=== PATIENT | male | born 1960 | race Caucasian/White ===

== ENCOUNTER 2018-10-11 11:23 | Emergency (ER) | payer OTHER ==
--- NOTE | 2018-10-11 12:02 | XR ---
EXAMINATION TYPE: XR shoulder complete LT DATE OF EXAM: 10/11/2018 COMPARISON: NONE HISTORY: Pain TECHNIQUE: Three views are submitted. FINDINGS: There is an anterior dislocation of the humeral head with a Hill-Sachs fracture. Soft tissue fragment s may be related to bony fragments from the Hill-Sachs deformity. Arthropathy of the AC joint. IMPRESSION: 1. Anterior dislocation with subtle sac compression fracture superior humeral head. Soft tissue ossif ication or calcification may be secondary to the dislocation.
--- NOTE | 2018-10-11 12:04 | ED ---
Upper Extremity HPI - General Source: patient, RN notes reviewed Mode of arrival: ambulatory Limitations: no limitations <Kodak Roth - Last Filed: 10/11/18 13:19> <Ez Krishnan - Last Filed: 10/11/18 13:35> - General Chief Complaint: Extremity Injury, Upper Stated Complaint: lt shoulder injury Time Seen by Provider: 10/11/18 11:36 - History of Present Illness Initial Comments: 58-year-old male presents emergency department to complaint left shoulder pain. Patient had multiple prior dislocations. Patient states he is at [facility] Department Emergency department felt a pop. Patient states he feels exactly the same. Patient denies paresthesias time. Patient states he is scheduled to have surgery for this. Patient denies any might falls. Patient states that he has had an MRI in the past which shows evidence of rotator cuff injury. (Kodak Roth) - Related Data Home Medications Medication Instructions Recorded Confirmed Acetaminophen [Tylenol Arthritis] 650 mg PO Q4H PRN 10/11/18 10/11/18 Calcium Carb/Magnesium Ox,Carb 1 tab PO TID 10/11/18 10/11/18 [Elías-Mag 500-250 MG Chewable] Ibuprofen [Motrin] 600 mg PO Q6HR PRN 10/11/18 10/11/18 Lisinopril [Prinivil] 5 mg PO DAILY 10/11/18 10/11/18 Multivitamins, Thera [Multivitamin 1 tab PO DAILY 10/11/18 10/11/18 (formulary)] Omeprazole 20 mg PO DAILY 10/11/18 10/11/18 Thiamine [Vitamin B-1] 100 mg PO DAILY 10/11/18 10/11/18 cloNIDine HCL [Catapres] 0.1 mg PO Q4H PRN 10/11/18 10/11/18 traZODone HCL 50 mg PO HS 10/11/18 10/11/18 Allergies Allergy/AdvReac Type Severity Reaction Status Date / Time No Known Allergies Allergy Verified 10/11/18 12:08 Review of Systems ROS Other: All systems not noted in ROS Statement are negative. <Kodak Roth - Last Filed: 10/11/18 13:19> ROS Other: All systems not noted in ROS Statement are negative. <Ez Krishnan - Last Filed: 10/11/18 13:35> ROS Statement: Those systems with pertinent positive or pertinent negative responses have been documented in the HPI. Past Medical History Past Medical History: GERD/Reflux, Hypertension Additional Past Medical History / Comment(s): frequent left shoulder dislocations, Barretts esophagus Additional Past Surgical History / Comment(s): bilateral knee replace, screw in right ankle Past Psychological History: Anxiety, Depression Smoking Status: Never smoker Past Alcohol Use History: Abuse Past Drug Use History: None Reported <Kodak Roth M - Last Filed: 10/11/18 13:19> General Exam Limitations: no limitations General appearance: alert, in no apparent distress Respiratory exam: Present: normal lung sounds bilaterally. Absent: respiratory distress, wheezes, rales, rhonchi, stridor Cardiovascular Exam: Present: regular rate, normal rhythm, normal heart sounds. Absent: systolic murmur, diastolic murmur, rubs, gallop, clicks Extremities exam: Present: other (Left shoulder neurovascular intact, limited range of motion, there is noted sulcus, obvious dislocation) Neurological exam: Present: alert, oriented X3, CN II-XII intact Skin exam: Present: warm, dry, intact, normal color. Absent: rash <Kodak Roth M - Last Filed: 10/11/18 13:19> Course Vital Signs 10/11/18 10/11/18 10/11/18 11:31 12:20 12:30 Temperature 98.3 F Pulse Rate 91 70 89 Respiratory 18 18 20 Rate Blood Pressure 164/107 148/88 152/116 O2 Sat by Pulse 97 97 97 Oximetry 10/11/18 10/11/18 10/11/18 12:35 12:40 12:45 Temperature Pulse Rate 90 87 80 Respiratory 21 21 17 Rate Blood Pressure 120/47 129/55 101/82 O2 Sat by Pulse 99 97 99 Oximetry 10/11/18 10/11/18 10/11/18 12:50 12:55 13:00 Temperature Pulse Rate 73 70 68 Respiratory 20 16 18 Rate Blood Pressure 100/73 120/59 115/59 O2 Sat by Pulse 99 100 100 Oximetry 10/11/18 13:15 Temperature Pulse Rate 71 Respiratory 16 Rate Blood Pressure 130/72 O2 Sat by Pulse 100 Oximetry Procedures - Orthopedic Joint Reduction Joint #1 Consent Obtained: written consent Side: left Joint Reduction Location: shoulder Analgesia: procedural sedation Shoulder Technique Used (if applicable): traction/counter-traction, external rotation Post-Reduction Neuro Exam: intact Post-Reduction Vascular Exam: intact Post Reduction X-Ray Obtained: Yes Post Reduction X-Ray Results: reduced Splint Applied: Yes Patient Tolerated Procedure: well - Procedural Sedation Procedural Sedation Start Time: 12:25 Procedural Sedation Stop Time: 13:10 Indications: fracture/dislocation reduction ASA Class: II Mallampati Airway Score: 2 Preparation: monitoring manager applied, pulse oximeter, capnometry used, supplemental O2 applied, suction/airway equipment at bedside IV Propofol Dose (mgs): 200 IV Etomidate Dose (mgs): 20 Complications: none Patient Tolerated Procedure: well <Ez Krishnan - Last Filed: 10/11/18 13:35> Medical Decision Making <Koadk Roth - Last Filed: 10/11/18 13:19> - Medical Decision Making 58-year-old male present emergency department for left shoulder dislocation. This was reduced by Dr. Krishnan. Patient was placed a sling and will follow- up with his prior orthopedic physician. (Kodak Roth) Disposition Is patient prescribed a controlled substance at d/c from ED?: No Time of Disposition: 13:19 <Kodak Roth - Last Filed: 10/11/18 13:19> <Ez Krishnan - Last Filed: 10/11/18 13:35> Clinical Impression: Dislocation of left shoulder joint Disposition: HOME SELF-CARE Condition: Stable Instructions (If sedation given, give patient instructions): Shoulder Dislocation (ED), Moderate Sedation (ED) Additional Instructions: Please return to the Emergency Department if symptoms worsen or any other concerns. Referrals: None,Stated [Primary Care Provider] - 1-2 days
[2018-10-11] MEDS: PROPOFOL 10 MG/ML 20 ML VIAL IV ONE ×3 (12:27→12:38)
[2018-10-11] MEDS ORDERED: ETOMIDATE 2 MG/ML 10 ML VIAL IVP STA ×2 (12:43→12:49)
--- NOTE | 2018-10-11 13:24 | XR ---
Left shoulder Limited HISTORY: Post reduction Single frontal view of the left shoulder correlated prior exam same dated earlier time. There has been interval reduction of patient's shoulder dislocation. IMPRESSION: Interval shoulder reduction.
[2018-10-11 14:18] VITALS: BP 145/71; PULSE 71; RESP 20; TEMP 98.6
== END 2018-10-11 14:18 | disposition home or self-care (01) ==
LOC: EC 11:23
DX: M24.412 Recurrent dislocation, left shoulder (principal); I10 Essential (primary) hypertension; K21.9 Gastro-esophageal reflux disease without esophagitis; F32.9 Major depressive disorder, single episode, unspecified; F41.9 Anxiety disorder, unspecified; Z79.899 Other long term (current) drug therapy; X58.XXXA Exposure to other specified factors, initial encounter
CPT/HCPCS: 73030; 73020; 99283; 23650; 99152; 99153 ×2; J2704